=== PATIENT | male | born 1985 | race Two or more races ===

== ENCOUNTER 2024-12-04 17:07 | Emergency (ER) | payer OTHER ==
[~2024-12-04] VITALS: Ht 165.1 cm; Wt 79.8 kg
[2024-12-04 17:22] VITALS: BP 145/91; TEMP 98; O2SAT 97
[2024-12-04] MEDS ORDERED: ACETAMINOPHEN ES 500 MG TABLET ONE (18:08)
[2024-12-04] MEDS: ACETAMINOPHEN ES 500 MG TABLET PO ONE (18:14)
[2024-12-04 19:22] LABS: BASOPHILS % (AUTO) 0.5 % (0.0-2.0); EOSINOPHILS # (AUTO) 0.3 K/uL (0.0-0.7); EOSINOPHILS % (AUTO) 3.9 % (0.0-6.0); HEMATOCRIT 35 % (39-51); HEMOGLOBIN 11.2 g/dL (13.5-17.5); LYMPHOCYTES # (AUTO) 2.6 K/uL (0.8-4.8); LYMPHOCYTES % (AUTO) 35.9 % (20.0-44.0); MEAN CORPUSCULAR HEMOGLOBIN 19 PG (26.0-33.0); MEAN CORPUSCULAR HGB CONC 32 g/dl (31.0-36.0); MEAN CORPUSCULAR VOLUME 61 fL (80-96); MONOCYTES # (AUTO) 0.5 K/uL (0.1-1.30); MONOCYTES % (AUTO) 6.8 % (2.0-12.0); NEUTROPHILS # (AUTO) 3.8 K/uL (1.8-8.9); NEUTROPHILS % (AUTO) 52.9 % (43.0-81.0); PLATELET COUNT (AUTO) 265 K/uL (150-450); RED CELL DISTRIBUTION WIDTH 19.7 % (11.5-15.0); WHITE BLOOD COUNT (AUTO) 7.1 K/uL (4.3-11.0)
[2024-12-04 19:26] LABS: CALCIUM, SERUM 8.2 mg/dL (8.5-10.1); CREATININE 0.8 mg/dL (0.6-1.3); POTASSIUM 3.7 mmol/L (3.5-5.1)
[2024-12-04] MEDS ORDERED: FLUT16SP16 BNOSTRILS (19:54)
[2024-12-04] MEDS ORDERED: P-EP-92 PO (19:54)
[2024-12-04] MEDS ORDERED: IBUP-1490 PO (19:55)
[2024-12-04] MEDS ORDERED: ACET-2030 PO (19:55)
[2024-12-04 20:49] LABS: BASOPHILS % (MANUAL) 1 % (0.0-2.0); EOSINOPHILS % (MANUAL) 6 % (0-4); LYMPHOCYTES % (MANUAL) 30 % (16-48); MONOCYTES % (MANUAL) 4 % (0-11.0); NEUTROPHILS % (MANUAL) 59 (42-76); PLATELET ESTIMATE ADEQUATE
[2024-12-04 20:50] LABS: ANISOCYTOSIS 1+; HYPOCHROMASIA 1+; OVALOCYTES 1+; ROULEAUX 1+
== END 2024-12-04 20:45 | disposition home or self-care (01) ==
LOC: ER 17:13
DX: J32.9 Chronic sinusitis, unspecified (principal); R09.81 Nasal congestion; R11.0 Nausea; R42 Dizziness and giddiness; Z20.822 Contact with and (suspected) exposure to COVID-19
CPT/HCPCS: 36415; 71045-TC; 80048-TC; 85025-TC